=== PATIENT | male | born 1960 | race Caucasian/White ===

== ENCOUNTER 2017-03-04 05:19 | Inpatient (IN) | payer OTHER ==
[2017-02-19 15:01] VITALS: BMI 34.0
--- NOTE | 2017-02-19 15:25 | PAT Medication Instructions ---
Service Date Feb 19, 2017. Current Home Medication List Acetaminophen (Tylenol), 1,000 MG PO Q8H PRN for RN Diclofenac (Voltaren), 75 MG PO BID Gabapentin (Neurontin), 300 MG PO HS Loratadine (Claritin), 10 MG PO QAM Sertraline (Zoloft), 100 MG PO QAM Medication Instructions For Your Scheduled Surgery - Hold the following medications 7 days prior to surgery PER SURGEON'S INSTRUCTIONS: Diclofenac (Voltaren), 75 MG PO BID - Hold the following medications the morning of surgery: Loratadine (Claritin), 10 MG PO QAM - Take the following medications the morning of surgery with a sip of water OTHERWISE NOTHING TO EAT OR DRINK AFTER MIDNIGHT: Acetaminophen (Tylenol), 1,000 MG PO Q8H PRN (may take if needed up to 4 hours prior to surgery) Sertraline (Zoloft), 100 MG PO QAM - Take the following medications as scheduled the night before surgery: Acetaminophen (Tylenol), 1,000 MG PO Q8H PRN Gabapentin (Neurontin), 300 MG PO HS If you have any questions please call us at [phone] or [phone] or [phone]
--- NOTE | 2017-02-19 16:04 | DIAGNOSTIC IMAGING REPORT ---
CHEST 2 VIEWS ROUTINE CLINICAL HISTORY: Preoperative evaluation. COMPARISON STUDY: No previous studies for comparison. FINDINGS: There is suspected mild lung hyperexpansion. There may be a trace right pleural effusion. There is no evidence of pulmonary edema. No consolidation is identified to suggest pneumonia. Cardiomediastinal silhouette is normal. IMPRESSION: 1. Possible trace right pleural effusion. 2. No evidence of pulmonary edema. 3. No consolidation to suggest pneumonia. Electronically signed by: Tee Varner M.D. 02/19/2017 4:02 PM Dictated Date/Time: 02/19/2017 4:01 PM
[2017-02-19 17:53] LABS: HEMOGLOBIN A1C 5.3 % (4.5-5.6)
--- NOTE | 2017-02-25 09:49 | HISTORY & PHYSICAL EXAMINATION ---
DATE OF ADMISSION: 03/04/2017 CHIEF COMPLAINT: Left knee pain. HISTORY OF PRESENT ILLNESS: Jose is a 56-year-old male with a multiple year history of left knee pain. The patient rates his pain at 10/10. He has pain with his daily activities. He has limited standing and walking tolerance. Pain is worse with weightbearing. The patient has had NSAIDs, Tylenol, injections and bracing over the years without relief. He has failed conservative treatment and is scheduled for left knee replacement. PAST SURGICAL HISTORY: Left knee arthroscopy, hernia repair and fistula repair. SOCIAL HISTORY: The patient drinks 12 drinks per week. He smokes 1 pack per day. He lives in a 2-story home. 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 FAMILY HISTORY: Negative for DVT. MEDICATIONS: Gabapentin 300 mg 3 times daily, sertraline 100 mg daily, loratadine 10 mg daily, and diclofenac 75 mg b.i.d. ALLERGIES: None. REVIEW OF SYSTEMS: See HPI. Ten other systems reviewed, all negative. PHYSICAL EXAMINATION: VITAL SIGNS: Height 6 feet 1 inch, weight 262 pounds, and BMI is 35. GENERAL: This is a well-developed and well-nourished male, who is alert and oriented x3. Mood and affect are appropriate. HEENT: Normocephalic and atraumatic. Mucous membranes are moist and intact. NECK: Supple without lymphadenopathy. HEART: Regular rate and rhythm without murmurs, rubs or gallops. LUNGS: Clear to auscultation without wheezes or rhonchi. ABDOMEN: Soft and nontender. Bowel sounds are equal and active. EXTREMITIES: No ecchymosis, redness or warmth. Thigh and calf are soft and nontender. He has moderate effusion. He has a varus deformity. Range of motion is from 3-115 degrees with +1 laxity. He is neurovascularly intact with +5/5 strength. X-RAY EXAMINATION: AP and lateral views show joint space narrowing and osteophyte formation. IMPRESSION: 1. Degenerative joint disease, left knee. 2. History of deep venous thrombosis and pulmonary embolism. 3. Chronic narcotic use. PLAN: The patient will be admitted for a left total knee arthroplasty. We will plan on using Lovenox 40 mg daily for DVT prophylaxis for 2 weeks followed by aspirin 325 mg for 4 more weeks, for 6 weeks total of anticoagulation. The patient also is a current smoker. He is aware that this increases his risk of postop complication. Smoking cessation was recommended at this time.
[~2017-03-04] VITALS: Ht 185.4 cm; Wt 118.6 kg
[2017-03-04] VITALS (9 sets, daily range): BP systolic 117–152; BP diastolic 66–92; PULSE 67–83; TEMP 36.5–36.8; O2SAT 92–96; Ht 185.4 cm; Wt 118.6 kg
[~2017-03-04 05:19] MED LIST: ACET-1256 PO; CLR10 PO; DICL-201 PO; GABA-113 PO; SERT-234 PO
[2017-03-04] MEDS ORDERED: METOCLOPRAMIDE HCL 10 MG TAB PO SCH (06:00)
[2017-03-04] MEDS ORDERED: CEFAZOLIN 2000MG IV PUSH 10 ML IV SCH (06:00)
[2017-03-04] MEDS ORDERED: FAMOTIDINE 20 MG TAB PO SCH (06:00)
[2017-03-04] MEDS ORDERED: ROPIVACAINE 5MG/ML 30 ML 150 MG, BUPIVACAINE 0.5% MPF INJ 30 ML, EpINEphrine HCL INJ 0.... INFIL SCH ×8 (06:00)
[2017-03-04] MEDS ORDERED: LACTATED RINGER'S 1000ML 500 ML IV SCH (06:00)
[2017-03-04] MEDS ORDERED: CeleBREX 200 MG CAP PO SCH (06:00)
[2017-03-04] MEDS ORDERED: ACETAMINOPHEN 500 MG TAB PO SCH (06:00)
[2017-03-04] MEDS ORDERED: LACTATED RINGER'S 1000ML IV SCH (06:00)
[2017-03-04] MEDS ORDERED: GABAPENTIN 300 MG CAP PO SCH ×2 (06:00→21:00)
[2017-03-04] MEDS ORDERED: LACTATED RINGER'S 1000ML 1,000 ML IV SCH (06:00)
[2017-03-04] MEDS ORDERED: DEXAMETHASONE 4 MG TAB PO SCH (06:00)
[2017-03-04] MEDS ORDERED: BUPIVACAINE 0.5 % 5 MG/1 ML PF 10ML VIAL ONE (06:24)
[2017-03-04] MEDS ORDERED: FENTANYL CITRATE INJ 50 MCG/1 ML 2 ML VIAL ONE (06:46)
[2017-03-04] MEDS ORDERED: PROPOFOL IV EMULSION 10 MG/ML 20 ML VIAL IV ONE ×2 (06:46→08:54)
[2017-03-04] MEDS ORDERED: MIDAZOLAM HCL 1 MG/ML 2ML VIAL ONE ×2 (06:46→07:26)
[2017-03-04] MEDS ORDERED: ORTHO JOINT ANESTHETIC ONE (06:49)
[2017-03-04] MEDS ORDERED: POVIDONE-IODINE OP SOLN 30 ML BTL ONE (06:50)
[2017-03-04] MEDS ORDERED: BACITRACIN 50000 UNIT VIAL ONE (06:50)
[2017-03-04] MEDS ORDERED: ONDANSETRON INJ 2 MG/ML 2 ML VIAL IV PRN ×2 (07:00→09:30)
[2017-03-04] MEDS ORDERED: ATROPINE SULFATE 0.1 MG/ML 5ML SYR IV PRN (07:00)
[2017-03-04] MEDS ORDERED: FENTANYL CITRATE INJ 50 MCG/1 ML 2 ML VIAL IV PRN (07:00)
[2017-03-04] MEDS ORDERED: EpHEDrine SULFATE INJ 50 MG/ML AMP IV PRN (07:00)
--- NOTE | 2017-03-04 07:08 | History & Physical Bridge Note ---
H&P Re-Evaluation Bridge Note: I have examined the patient, reviewed the History & Physical and in the interval since the performance of the History & Physical I have noted the following changes of clinical significance: No changes noted
--- NOTE | 2017-03-04 09:07 | [facility] Post Operative Brief Note ---
Immediate Operative Summary Operative Date Mar 04, 2017. Pre-Operative Diagnosis Left knee degenerative joint disease Post-Operative Diagnosis Left knee degenerative joint disease Procedure(s) Performed Left total knee arthroplasty Surgeon Dr. Zuniga High Lighter Surgeon(s) Yelitza Venegas PA-C Estimated Blood Loss 25 mL Findings Consistent with Post-Op Diagnosis Fluids (cc crystalloids) 1600 Specimens A: Left knee bone and tissue Drains None Anesthesia Type MAC Spinal Regional Complication(s) none Disposition Disposition: Recovery Room / PACU
[2017-03-04] MEDS ORDERED: PHENYLEPHRINE 100MCG/ML 5ML SYR ONE (09:12)
[2017-03-04] MEDS ORDERED: MAGNESIUM HYDROXIDE SUSP 30 ML UDC PO PRN (09:30)
--- NOTE | 2017-03-04 10:03 | DIAGNOSTIC IMAGING REPORT ---
LEFT KNEE 2 VIEWS History: Left total knee arthroplasty. Degenerative arthritis. Postop. FINDINGS: The patient is status post a left total knee arthroplasty. The hardware is intact. No fracture or dislocation. IMPRESSION: Left total knee arthroplasty. No evidence for hardware complication. Electronically signed by: Randy Griffith M.D. 03/04/2017 10:01 AM Dictated Date/Time: 03/04/2017 10:01 AM
[2017-03-04] MEDS: SODIUM CHLORIDE 0.9% 1000ML 1,000 ML IV SCH ×2 (12:10→20:48)
[2017-03-04] MEDS: KETOROLAC TROMETHAMINE 30 MG/ML VIAL IV. SCH ×2 (14:10→19:31)
[2017-03-04] MEDS: ACETAMINOPHEN 500 MG TAB PO SCH ×2 (14:10→20:47)
[2017-03-04] MEDS: OXYCODONE HCL IR 5 MG TAB (IMMEDIATE RELEASE) PO PRN ×2 (14:40→18:43)
[2017-03-04] MEDS: MoRPHine SULFATE 4 MG/ML 1 ML CARP\\VIAL IV PRN ×2 (15:10→23:12)
--- NOTE | 2017-03-04 15:27 | Discharge Instructions ---
Discharge Instructions Date of Service Mar 04, 2017. Admission Reason for Admission: Left Knee Osteoarthritis Discharge Discharge Diagnosis / Problem: sp left TKA Discharge Goals Goal(s): Decrease discomfort, Improve function, Increase independence Activity Recommendations Activity Limitations: per Instructions/Follow-up section . Instructions / Follow-Up Instructions / Follow-Up ACTIVITY RECOMMENDATIONS: SELF CARE INSTRUCTIONS AFTER TOTAL KNEE REPLACEMENT A. You may need to continue a physical therapy program after discharge from the hospital. There are several options available to you. Your doctor will assist you in selecting the best one for you. 1. An out-patient facility 2 to 3 times a week for therapy or home therapy. 2. Continue working on all exercises taught to you in the hospital. Your goals should be to increase bending of your knee to 90 degrees and beyond and to fully straighten your knee. B. You may progress at your own pace from walking with a walker or crutches to a cane; then to no assistive devices. C. Make walking a part of your daily routine. Be up as much as comfortable with rest periods throughout the day. Rest with leg elevation is very important. Use the ice wrap frequently for the first 3-4 weeks. D. There are no restrictions on activities. You may ride in a car, shop, participate in compounding assistant and all social activities. E. Wear the long elastic stockings (IBIS hose) 20 hours a day for 2 weeks after surgery. They can be removed several times a day for laundering and for a bath. F. You may shower, no tub baths until cleared by your doctor. SPECIAL CARE INSTRUCTIONS: VERY IMPORTANT TO READ AND REVIEW A. There are a few signs you need to watch for after you are home. Call [facility] if you notice any of the followin. Increased severe knee pain. Some pain is expected especially when you exercise. 2. Increased swelling in your leg or knee; pain or swelling of the calf muscle in either lower leg. 3. Any fluid drainage from the incision. 4. Shortness of breath or chest pain. B. Please call [facility] at if you have any concerns or questions about your operation or recovery. The doctor or his nurse will return your call promptly. C. You must take antibiotics before dental work, bladder, bowel or other surgery. Your doctor will provide you with a permanent care to carry describing this precaution. IMPORTANT: * REMEMBER TO TAKE LOVENOX 40 MG ONCE DAILY X 2 WEEKS THEN ASPIRIN 325MG TWICE DAILY FOR 4 WEEKS UNLESS OTHERWISE DIRECTED. THIS IS YOUR BLOOD THINNER. * HIGH RISK PATIENTS MAY BE PRESCRIBED A STRONGER BLOOD THINNER. THIS WILL BE PROVIDED AT DISCHARGE. * CALL IF INCREASED PAIN, REDNESS, DRAINAGE OR FEVER GREATER THAT 101. * WEAR IBIS HOSE 20 HOURS PER DAY FOR 2 WEEKS. DERMABOND Prineo- This is a mesh tape dressing that is covered with glue. It should remain in place until the incision is properly healed, usually 10-14 days. This dressing is designed to naturally slough off. You may trim the excess mesh tape as it peels off. Incision may be briefly wet in a shower. Dry immediately by blotting with a clean, dry towel. Do not bath or swim until instructed by your doctor. Do not scratch, rub, or pick at the dressing. Do not apply any topical ointments or lotions until dressing is completely removed and/or instructed by your doctor. There may be a small piece of suture material at one end of your incision. Do not pull or trim this. If it is bothersome or catching on clothing, you may cover it with a band-aid. FOLLOW UP VISIT: If appointment is not already scheduled: Please call [facility] to make a follow-up appointment for 2 weeks after your surgery at . Current Hospital Diet Patient's current hospital diet: Regular Diet Discharge Diet Recommended Diet: Regular Diet Procedures Procedures Performed: Left total knee arthroplasty Pending Studies Studies pending at discharge: no Laboratory Results Hemoglobin A1c Test 02/19/17 15:35 Range/Units Estimated Average Glucose 105 mg/dl Hemoglobin A1c 5.3 4.5-5.6 % Medical Emergencies . Who to Call and When: Medical Emergencies: If at any time you feel your situation is an emergency, please call 911 immediately. . Non-Emergent Contact Non-Emergency issues call your: Surgeon . "Provider Documentation" section prepared by Yelitza Venegas. . VTE Core Measure Inpt VTE Proph given/why not?: Other Anticoagulation, T.E.D. Stockings, SCD's [place] Drug Monitoring Program Search Results: patient reviewed within database, no issues identified
[2017-03-04] MEDS ORDERED: CEFAZOLIN IV 2,000 MG in DEXTROSE 5% 50ML 50 ML IV SCH (16:00)
[2017-03-04] MEDS ORDERED: NURSING VERBAL MED ORDER ONE (19:45)
--- NOTE | 2017-03-04 20:43 | Orthopedic Progress Note ---
Orthopedic Progress Note Date of Service Mar 04, 2017. Subjective Additional Notes: Postoperative progress note Patient seen at bedside, comfortable, no acute issues, pain well controlled. Objective LLE NVSI +EHL/FHL/TA/GS SILT grossly, CR< 2 seconds, +2 DP pulse, compartments soft NT, dressing cdi Date Time Temp Pulse Resp B/P (MAP) Pulse Ox O2 Delivery O2 Flow Rate FiO2 03/04/17 19:54 36.6 78 16 143/77 (99) 93 Room Air 03/04/17 15:21 36.8 70 16 131/66 (87) 92 Room Air 03/04/17 13:05 74 16 117/70 (86) 96 03/04/17 12:10 36.7 67 16 124/73 (90) 94 Room Air 03/04/17 11:18 36.6 71 16 145/81 (102) 93 Nasal Cannula 2.0 03/04/17 10:45 76 18 152/86 (108) 95 03/04/17 10:15 93 Nasal Cannula 2.0 03/04/17 10:15 93 Nasal Cannula 2.0 03/04/17 10:15 36.5 73 18 123/71 (88) 93 Nasal Cannula 2.0 03/04/17 10:00 36.2 73 17 121/71 93 Nasal Cannula 2 03/04/17 09:50 79 22 107/76 94 Nasal Cannula 2 03/04/17 09:40 36.1 89 18 141/87 96 Nasal Cannula 2 03/04/17 05:45 36.6 83 18 147/92 95 Room Air Assessment & Plan Assessment: s/p L TKA Plan: -Ancef x 24 -DVT ppx - Lovenox x 2 weeks, then ASA BID x 4 weeks -WBAT -PT/OT -Pain controlled -Am labs -Post operative XR demonstrates well aligned well fixed prosthesis, no fracture/ dislocation
[2017-03-04] MEDS: OXYCODONE HCL 10 MG TABCR (OXYCONTIN) PO SCH (20:45)
[2017-03-04] MEDS: DOCUSATE SODIUM 100 MG CAP PO SCH (20:46)
[2017-03-04] MEDS ORDERED: SENNA 8.6 MG TAB PO SCH (21:00)
[2017-03-05] MEDS ORDERED: CEFAZOLIN IV 2,000 MG in SYRINGE 0 ML IV SCH
[2017-03-05] MEDS: KETOROLAC TROMETHAMINE 30 MG/ML VIAL IV. SCH ×2 (01:32→09:01)
[2017-03-05 03:09] VITALS: BP 121/66; PULSE 69; TEMP 36.8; O2SAT 94
[2017-03-05] MEDS: ACETAMINOPHEN 500 MG TAB PO SCH ×2 (05:27→13:53)
[2017-03-05] MEDS: OXYCODONE HCL IR 5 MG TAB (IMMEDIATE RELEASE) PO PRN ×3 (05:27→13:32)
[2017-03-05] MEDS: SODIUM CHLORIDE 0.9% 1000ML 1,000 ML IV SCH (06:30)
[2017-03-05 07:00] LABS: HEMOGLOBIN 11.5 g/dL (14.0-18.0); MEAN CELL VOLUME 95.5 fL (80-100); MEAN CORPUSCULAR HEMOGLOBIN 32.3 pg (25-34); MEAN CORPUSCULAR HGB CONC 33.8 g/dl (32-36); MEAN PLATELET VOLUME 9.3 fL (7.4-10.4); PLATELET COUNT 186 K/uL (130-400); RED CELL DISTRIBUTION WIDTH CV 13.2 % (11.5-14.5); RED CELL DISTRIBUTION WIDTH SD 46.2 fL (36.4-46.3); WHITE BLOOD COUNT 9.51 K/uL (4.8-10.8)
[2017-03-05 07:08] LABS: PTT PATIENT 25.8 SECONDS (21.0-31.0)
[2017-03-05 07:27] LABS: CALCIUM 8.7 mg/dl (8.5-10.1); CREATININE 0.94 mg/dl (0.60-1.40)
[2017-03-05 07:50] VITALS: BP 126/71; PULSE 64; TEMP 36.7; O2SAT 94
[2017-03-05] MEDS ORDERED: ENOXAPARIN 40 MG/0.4 ML SYR SQ SCH (08:00)
[2017-03-05] MEDS ORDERED: OXYSR10 PO (08:23)
[2017-03-05] MEDS ORDERED: CLB200 PO (08:23)
[2017-03-05] MEDS ORDERED: ACET-1256 PO (08:23)
[2017-03-05] MEDS ORDERED: SENN-61 PO (08:23)
[2017-03-05] MEDS ORDERED: ONDA8TAB6 PO (08:23)
[2017-03-05] MEDS ORDERED: RXC5 PO (08:23)
[2017-03-05] MEDS: OXYCODONE HCL 10 MG TABCR (OXYCONTIN) PO SCH (08:58)
[2017-03-05] MEDS: DOCUSATE SODIUM 100 MG CAP PO SCH (08:59)
[2017-03-05] MEDS ORDERED: SERTRALINE HCL 100 MG TAB PO SCH (09:00)
[2017-03-05] MEDS ORDERED: PANTOprazole SOD 40 MG TAB PO SCH (09:00)
[2017-03-05] MEDS ORDERED: MULTIVITAMIN TAB PO SCH (09:00)
--- NOTE | 2017-03-05 09:30 | Orthopedic Progress Note ---
Orthopedic Progress Note Date of Service Mar 05, 2017. Subjective Additional Notes: Patient doing well this morning, pain controlled, no acute issues overnight. Objective LLE NVSI +EHL/FHL/TA/GS SILT grossly, CR< 2 seconds, +2 DP pulse, compartments soft NT, dressing cdi Date Time Temp Pulse Resp B/P (MAP) Pulse Ox O2 Delivery O2 Flow Rate FiO2 03/05/17 07:50 36.7 64 16 126/71 (89) 94 Room Air 03/05/17 03:09 36.8 69 17 121/66 (84) 94 Room Air 03/04/17 23:50 36.8 72 18 128/70 (89) 92 Room Air 03/04/17 19:54 36.6 78 16 143/77 (99) 93 Room Air 03/04/17 19:20 Room Air 03/04/17 15:21 36.8 70 16 131/66 (87) 92 Room Air 03/04/17 13:05 74 16 117/70 (86) 96 03/04/17 12:10 36.7 67 16 124/73 (90) 94 Room Air 03/04/17 11:18 36.6 71 16 145/81 (102) 93 Nasal Cannula 2.0 03/04/17 10:45 76 18 152/86 (108) 95 03/04/17 10:15 93 Nasal Cannula 2.0 03/04/17 10:15 93 Nasal Cannula 2.0 03/04/17 10:15 36.5 73 18 123/71 (88) 93 Nasal Cannula 2.0 03/04/17 10:00 36.2 73 17 121/71 93 Nasal Cannula 2 03/04/17 09:50 79 22 107/76 94 Nasal Cannula 2 03/04/17 09:40 36.1 89 18 141/87 96 Nasal Cannula 2 Laboratory Results 24 Hours: Test 03/05/17 06:44 Hematocrit 34.0 % Hemoglobin 11.5 g/dL Prothromb Time International Ratio 1.0 Prothrombin Time 10.0 SECONDS Assessment & Plan Assessment: s/p L TKA POD#1 Plan: -Ancef x 24 -DVT ppx - Lovenox x 2 weeks, then ASA BID x 4 weeks -WBAT -PT/OT -Pain controlled -Am labs - hgb 11.5 -Post operative XR demonstrates well aligned well fixed prosthesis, no fracture/ dislocation -Plan for DC home with homecare today.
--- NOTE | 2017-03-05 09:54 | Orthopedic Progress Note ---
Orthopedic Progress Note Date of Service Mar 05, 2017. Subjective Post OP Day: 1 Reports: feeling well, Denies: chest pain, SOB, nausea / vomiting, light headedness, calf pain Objective calves soft nontender, N/V intact, dressing C/D/I, A&O x3, toes mobile Date Time Temp Pulse Resp B/P (MAP) Pulse Ox O2 Delivery O2 Flow Rate FiO2 03/05/17 07:50 36.7 64 16 126/71 (89) 94 Room Air 03/05/17 03:09 36.8 69 17 121/66 (84) 94 Room Air 03/04/17 23:50 36.8 72 18 128/70 (89) 92 Room Air 03/04/17 19:54 36.6 78 16 143/77 (99) 93 Room Air 03/04/17 19:20 Room Air 03/04/17 15:21 36.8 70 16 131/66 (87) 92 Room Air 03/04/17 13:05 74 16 117/70 (86) 96 03/04/17 12:10 36.7 67 16 124/73 (90) 94 Room Air 03/04/17 11:18 36.6 71 16 145/81 (102) 93 Nasal Cannula 2.0 03/04/17 10:45 76 18 152/86 (108) 95 03/04/17 10:15 93 Nasal Cannula 2.0 03/04/17 10:15 93 Nasal Cannula 2.0 03/04/17 10:15 36.5 73 18 123/71 (88) 93 Nasal Cannula 2.0 03/04/17 10:00 36.2 73 17 121/71 93 Nasal Cannula 2 Laboratory Results 24 Hours: Test 03/05/17 06:44 Hematocrit 34.0 % Hemoglobin 11.5 g/dL Prothromb Time International Ratio 1.0 Prothrombin Time 10.0 SECONDS Assessment & Plan Assessment: s/p L TKA POD#1 Plan: -Ancef x 24 -DVT ppx - Lovenox x 2 weeks, then ASA BID x 4 weeks -WBAT -PT/OT -Pain controlled -Am labs - hgb 11.5 -Post operative XR demonstrates well aligned well fixed prosthesis, no fracture/ dislocation -Plan for DC home with homecare today.
[2017-03-05] MEDS ORDERED: LVNIS40 SQ (09:56)
[2017-03-05 10:10] VITALS: BP 126/71; PULSE 64; TEMP 36.7; O2SAT 94
--- NOTE | 2017-03-05 13:16 | Anesthesiology Progress Note ---
Anesthesia Post Op Note Date & Time Mar 05, 2017 at 13:15 Vital Signs Pain Intensity: 6.0 Vital Signs Past 12 Hours Date Time Temp Pulse Resp B/P (MAP) Pulse Ox O2 Delivery O2 Flow Rate FiO2 03/05/17 10:10 36.7 64 16 94 Room Air 03/05/17 08:45 Room Air 03/05/17 07:50 36.7 64 16 126/71 (89) 94 Room Air 03/05/17 03:09 36.8 69 17 121/66 (84) 94 Room Air Notes Mental Status: alert / awake / arousable, participated in evaluation Pt Amnestic to Procedure: Yes Nausea / Vomiting: adequately controlled Pain: adequately controlled Airway Patency, RR, SpO2: stable & adequate BP & HR: stable & adequate Hydration State: stable & adequate Awake, alert, VSS, anticipating discharge. Pain controlled with medication Pain scale 6. No complaints with anesthesia.
[2017-03-05] MEDS: MoRPHine SULFATE 4 MG/ML 1 ML CARP\\VIAL IV PRN (13:35)
--- NOTE | 2017-03-05 14:56 | [facility] Operative Report ---
Operative Report Operative Date Mar 05, 2017. Pre-Operative Diagnosis Left knee degenerative joint disease Post-Operative Diagnosis Left knee degenerative joint disease Procedure(s) Performed Left total knee arthroplasty Surgeon Dr. Zuniga Vallez Filter Operator Surgeon(s) Yelitza Venegas PA-C Estimated Blood Loss 25 mL Findings see dictated op note Fluids 1600 Specimens A: Left knee bone and tissue Drains none Anesthesia spinal Complication(s) None Disposition Recovery Room / PACU Indications A 56-year-old male presents with long history of left knee severe tricompartmental DJD which is failed outpatient conservative treatments including NSAIDs, bracing, cortisone injections home walking/exercise program. His symptoms have progressed to the point where it has been difficult for him to perform normal activities of daily living. I have indicated the patient for a left total knee arthroplasty, the risks and benefits and complications of the procedure include but are not limited to infection bleeding damage to bone nerves vessels surrounding soft tissue, blood clots loss of function leg length discrepancy dislocation failure of the components need for additional surgery and . The patient wished to proceed with surgery at this time and informed consent was obtained. Appropriate clearances were obtained. Description of Procedure Following induction of spinal anesthesia, a tourniquet was applied to the proximal aspect of the thigh and the patient's left leg was prepped and draped in the usual sterile manner. A timeout was performed and site julito verified. Limb was exsanguinated with an esmarch bandage and tourniquet was inflated to 300 mmHg. A longitudinal midline incision was made over the anterior knee. Subcutaneous tissue was sharply dissected down to fascia. Electrocautery was used for hemostasis. Next a parapatellar arthrotomy was performed. Patella was everted and the knee was flexed. A aj retractor was used to expose the synovium above on the anterior aspect of the femur and removed down to bone. Next, the anterior fat pad was removed to aid in visualization. The medial face of the tibia was cleared of soft tissue first with a bovie and a johnson elevator. This tissue was retracted posteriorly using a blunt enrico. Next the extramedullary tibial cutting guide was placed to the anterior aspect of the tibia. The tibial resection level was set taking 2mm from the defective tibial condyle. The medial and lateral collateral ligaments were protected with two enrico retractors. The tibia guide was removed and proximal tibial bone fragment excised utilizing straight osteotome, electrocautery and brayden. Next, the distal femur intramedullary canal was accessed utilizing the step drill. The intramedullary distal femur cutting guide was placed into the canal and pinned into place. The distal femur was cut on the +0 setting. Next the cutting guide was removed and the femur was sized. Care was taken to ensure appropriate facing slitter all rotation and 3 degree holes were drilled. A size 9 4-in-1 cutting block was placed on the distal end of the femur and secured into place with two short headed screws. To bent homans were placed to protect the medial and lateral collateral ligaments. The oscillating saw was used to cut anterior, posterior, anterior chamfer and posterior chamfer. The four and one cutting block was removed and bone fragments excised. Laminar assistant attorney general was placed laterally and the ACL and PCL were removed followed by the medial meniscus and posterior medial osteophytes. Aquamantys was utilized for any posterior medial bleeders and Orthomix injected into the posterior medial capsule. A laminar assistant attorney general was then placed in the medial compartment and the lateral meniscus and posterior osteophytes were removed. Aquamantys was utilized for any posterior lateral bleeders and Orthomix injected into the posterior lateral capsule. Next, drop timbo and spacer block were placed with the leg in flexion and extension to assess alignment and flexion/extension gaps. Next the proximal tibia was assessed and two bent homans were placed medial and lateral to aid in visualization. The appropriate tibia size and rotation was selected and a size G tibia guide was pinned into place with appropriate rotation. Preparation of the tibia was completed utilizing the matching tibial drill and broach. I then turned my attention back to the distal femur in a trial femoral component was impacted into place. Appropriate femoral width was assessed and selected. Next the femur PS box cut guide was placed and cut made with the reciprocal saw and the PS box provisional placed. A trial size 12 mm tibia articular tray was placed and varus-valgus balance assessed in 0 degrees of extension and 30, 60 and 90 degrees of flexion. Sequenti tibial inserts were trailed to find the best fit. A final tibial articular surface size 16 mm was chosen. Assess was gained to the patella and caliper utilized to measure width. The patella reamer was utilized and remaining bone removed with oscillating saw. A size 35 mm patella button was selected and the patella pegs drilled. Trial patella button was placed and tracking was assessed. The knee was found to be well balanced, well aligned with excellent patella tracking. The trials were removed and final components were obtained and assembled. The knee was irrigated copiously with sterile saline solution mixed with bacitracin. Access to the proximal tibia was once again obtained utilizing to the homans and the proximal tibia and distal femur were dried with lap sponges. The final components were cemented into place and all excess cement was removed. A trial tibial articular surface was placed while cemented hardened. Knee stability was once again assessed and the final component inserted. The knee was injected with the remaining Orthomix solution and irrigated once more with sterile saline solution mixed with bacitracin. The capsulotomy was closed with #1 Vicryl followed by subcutaneous closure with 2-0 Vicryl suture and a 3- 0 V-lock suture. Skin closure was performed using Prineo dressing followed by Tanner, 4 x 4s and angela wrap. The patient tolerated the procedure well and was taken to the PACU in stable condition. Due to the complex nature of the procedure, the entire surgery was performed with the operational assistance of Flower Venegas PA-C. The orthodontist assistant, under direct supervision, was involved in the actual performance of all aspects of the surgical procedure including hemostasis, tissue retraction and incision, Instrument management, patient positioning, and wound closure. I attest to the content of the Intraoperative Record and any orders documented therein. Any exceptions are noted below. I attest to the content of the Intraoperative Record and any orders documented therein. Any exceptions are noted below.
[2017-03-06] MEDS ORDERED: CeleBREX 200 MG CAP PO SCH (21:00)
== END 2017-03-05 14:49 | disposition home or self-care (01) | DRG 470 ==
LOC: C.ACU 05:19 → C.3E 06:05 → ENRESERV 09:48
PROVIDERS: ADMIT Orthopaedic Surgery; ATTEND Orthopaedic Surgery
PROC: 0SRD0J9 Replacement of Left Knee Joint with Synthetic Substitute, Cemented, Open Approach (ICD-10-PCS; principal; 2017-03-04 07:15)
DX: M17.12 Unilateral primary osteoarthritis, left knee (principal); G62.9 Polyneuropathy, unspecified; F32.9 Major depressive disorder, single episode, unspecified; E66.9 Obesity, unspecified; Z68.34 Body mass index [BMI] 34.0-34.9, adult; F17.200 Nicotine dependence, unspecified, uncomplicated; Z72.89 Other problems related to lifestyle; Z86.711 Personal history of pulmonary embolism; Z86.718 Personal history of other venous thrombosis and embolism; Z79.1 Long term (current) use of non-steroidal anti-inflammatories (NSAID); Z79.899 Other long term (current) drug therapy; Z98.890 Other specified postprocedural states

== ENCOUNTER 2019-04-12 04:55 | Inpatient (IN) ==
--- NOTE | 2019-03-31 16:09 | PAT Medication Instructions ---
Medication Instructions Date of Service March 31, 2019 Home Medications Chantix Patch-Starter Pack 1 patch TOPICAL Q2D gabapentin 300 mg PO BID hydrocodone-acetaminophen 1 tab PO Q6H PRN sertraline 100 mg PO QAM DO NOT take the morning of surgery Chantix Patch-Starter Pack 1 patch TOPICAL Q2D Take morning of surgery With a small sip of water, OTHERWISE NOTHING TO EAT OR DRINK AFTER MIDNIGHT: gabapentin 300 mg PO BID hydrocodone-acetaminophen 1 tab PO Q6H PRN (okay to take up to 4 hours prior to surgery if needed) sertraline 100 mg PO QAM Take evening before surgery gabapentin 300 mg PO BID hydrocodone-acetaminophen 1 tab PO Q6H PRN (if needed) Other Notes If you have any questions please call us at [phone] or [phone] or [phone] or [phone]
--- NOTE | 2019-04-05 11:50 | Anesthesiology Consultation ---
Date of Service April 05, 2019 Assessment & Plan (1) Encounter for pre-operative examination: Chart Review Chart Review: Acceptable Risk for Surgery (pending surgeon-ordered PCP clearance scheduled 04/07 (Dr. Taylor)) and Patient seen in Pre Admission Testing Teaching & Discussion Pre-Anesthesia Teaching/Discussion Notes: Instructed NPO after midnight before surgery,except medications with 15 cc of water. Medication instructions prov ided according to the PAT guidelines. History Surgery Operation Date: 04/12/19 09:00 Proposed Procedures p Right Total Knee Arthroplasty - Landen Zuniga DO Height/Weight Height: 6 ft 1 in Weight: 112.8 kg Allergies Allergy/AdvReac Type Severity Reaction Status Date / Time No Known Allergies Allergy Verified 03/30/19 10:08 Medications Home Medications Medication Instructions Recorded Confirmed Last Taken Chantix Patch-Starter Pack 1 patch TOPICAL Q2D 03/30/19 03/30/19 Unknown gabapentin 300 mg PO BID 03/30/19 03/30/19 Unknown hydrocodone-acetaminophen 1 tab PO Q6H PRN 03/30/19 03/30/19 Unknown sertraline 100 mg PO QAM 03/30/19 03/30/19 Unknown Past Medical History Medical History Arthritis Chronic obstructive pulmonary disease Depression Obesity Pulmonary embolism 1986 (post-op left knee surgery)- was on AC x 6 months Exercise / Class Metabolic Activity III < 4 Walking/Shop/Light housework Past Family History Family History Mother Family hx of colon cancer Past Surgical History Surgical History H/O left knee surgery History of colonoscopy History of herniorrhaphy History of prostate biopsy ENLARGED-BENIGN Inguinal cyst REMOVAL Past Anesthesia History No Hx of Anesthesia Complications and No Family Hx of Anesthesia Complications History of PONV No Hx of PONV and No Hx of Motion Sickness Social History Smoking Status: Current every day smoker Smoking cigarettes per day: X 40 YRS-CUTTING DOWN-10 CIGS A DAY CUTTING DOWN-ON CHANTIX PATCH Do You Dip or Chew Tobacco: No Hx Alcohol Use: Yes Alcohol type: beer alcohol intake frequency: a few times a week Hx Substance Use: No Review of Systems Patient denies chest pain, shortness of breath, dyspnea on exertion, cough, wheezing, palpitations. Physical Exam Vital Signs VITALS BP 124/84 P 73 TEMP 97.9 SP02 96%RA RESP 18 PHYSICAL Full neck and c-spine range of motion. Full TMJ range of motion. TMD 3 finger breaths Mallampati Score 2 Dentition: missing side tooth, several chipped teeth per patient Lungs: clear throughout to auscultation Cardiac: regular rate and rhythm, no murmurs noted Spine: normal Carotid arteries: negative bruit Extremities: no edema Testing Laboratory Results 04/05/19 12:08 04/05/19 12:08 PT 10.3 Seconds (9.0-12.0) 04/05/19 12:08 INR 1.0 (0.9-1.1) 04/05/19 12:08 APTT 28.0 Seconds (21.0-31.0) 04/05/19 12:08 Hemoglobin A1c 5.2 % (4.5-5.6) 04/05/19 12:08 Urine Color Dark Yellow 04/05/19 12:08 Urine Appearance Cloudy (Clear) A 04/05/19 12:08 Urine pH 5.0 (4.5-7.5) 04/05/19 12:08 Ur Specific [place] 1.023 (1.000-1.030) 04/05/19 12:08 Urine Protein Negative (Negative) 04/05/19 12:08 Urine Glucose (UA) Negative (Negative) 04/05/19 12:08 Urine Ketones Negative (Negative) 04/05/19 12:08 Urine Nitrite Negative (Negative) 04/05/19 12:08 Ur Leukocyte Esterase Negative (Negative) 04/05/19 12:08 Urine WBC (Auto) 1-5 /hpf (0-5) 04/05/19 12:08 Urine RBC (Auto) 0-4 /hpf (0-4) 04/05/19 12:08 U Hyaline Cast (Auto) 5-10 /lpf (0-5) H 04/05/19 12:08 U Epithel Cells (Auto) >30 /lpf (0-5) H 04/05/19 12:08 Urine Bacteria (Auto) Negative (Negative) 04/05/19 12:08 Blood Type B Positive 04/05/19 12:08 Antibody Screen NEGATIVE 04/05/19 12:08 04/05/19 12:08 Urine Culture - Preliminary Urine,Clean Catch No growth - Less than 1,000 colonies/mL, Final report to follow. Electrocardiogram Date: 04/05/19 NSR at 69bpm. Possible inferior infarct, age undetermined. Chest X-Ray Date: 04/05/19 No acute findings. Stable lower lung zone areas of scarring/atelectasis. Stable blunting of the right lateral posterior costophrenic angles.
--- NOTE | 2019-04-05 12:26 | XRay Report ---
XR chest Pre-admission PA/Lat CLINICAL HISTORY: Preoperative chest COMPARISON STUDY: February 2017 FINDINGS: The cardiac and mediastinal contours are normal. There is no evidence of focal pulmonary co nsolidation. There is no evidence of failure. No pleural effusions are visualized.[There is stable bl unting of the right and posterior costophrenic angles. There is stable lower lung zone parenchymal sc arring. IMPRESSION: 1. No acute findings 2. Stable lower lung zone areas of scarring/atelectasis 3. Stable blunting of the right lateral posterior costophrenic angles ACT 112: Negative or not required by law. Electronically signed by: Dylan Fontana M.D. 04/05/2019 12:25 PM
[2019-04-05 13:36] LABS: Basophils # (auto) 0.03 K/uL (0-0.2); Basophils % (auto) 0.6 %; Eosinophils # (auto) 0.13 K/uL (0-0.5); Eosinophils % (auto) 2.6 %; Hematocrit (blood only) 48.9 % (42-52); Hemoglobin 16.5 g/dL (14.0-18.0); Immature Granulocytes # (auto) 0.01 K/uL (0.00-0.02); Immature Granulocytes % (auto) 0.2 %; Lymphocytes # (auto) 1.04 K/uL (1.2-3.4); Lymphocytes % (auto) 20.5 %; Mean Corpuscular Hemoglobin 34.2 pg (25-34); Mean Corpuscular Hgb Conc 33.7 g/dL (32-36); Mean Corpuscular Volume 101.2 fL (80-100); Mean Platelet Volume 10.3 fL (7.4-10.4); Monocytes # (auto) 0.54 K/uL (0.11-0.59); Monocytes % (auto) 10.6 %; Neutrophils # (auto) 3.33 K/uL (1.4-6.5); Neutrophils % (auto) 65.5 %; Platelet Count 200 K/uL (130-400); RDW Coefficient of Variation 14.1 % (11.5-14.5); RDW Standard Deviation 52.7 fL (36.4-46.3); Red Blood Count 4.83 M/uL (4.7-6.1); White Blood Count 5.08 K/uL (4.8-10.8)
[2019-04-05 13:45] LABS: Albumin Globulin Ratio 1.1 (0.9-2); Albumin Level 3.7 gm/dl (3.4-5.0); BUN Creatinine Ratio 11.7 (10-20); Bilirubin,Total 0.6 mg/dl (0.2-1); Calcium 8.9 mg/dl (8.5-10.1); Creatinine Clr Calc Pharmacy 93.7 ml/min; Est GFR (African American) 84.5; Est GFR (Non-African American) 72.9; Globulin 3.4 gm/dl (2.5-4.0); Potassium 4.2 mmol/L (3.5-5.1); Total Protein 7.1 gm/dl (6.4-8.2)
[2019-04-05 13:46] LABS: Estimated Average Glucose 103 mg/dl; Hemoglobin A1C 5.2 % (4.5-5.6)
[2019-04-05 13:49] LABS: Bilirubin Direct 0.1 mg/dl (0-0.2)
[2019-04-05 13:55] LABS: Prothrombin Time 10.3 Seconds (9.0-12.0)
[2019-04-05 13:59] LABS: Appearance Urine Cloudy (Clear); Bacteria Urine Automated Negative (Negative); Blood Urine Negative (Negative); Color Urine Dark Yellow; Epithelial Cell Urine Auto >30 /lpf (0-5); Glucose Urine UA Negative (Negative); Ketones Urine Negative (Negative); Leukocyte Esterase Urine Negative (Negative); Nitrite Urine Negative (Negative); Protein Urine Negative (Negative); RBC Urine Automated 0-4 /hpf (0-4); Specific Gravity Urine 1.023 (1.000-1.030); Urobilinogen Urine Negative (Negative)
[2019-04-05 14:08] LABS: Bilirubin Urine Negative (Negative); Ictotest Urine Negative (Negative)
--- NOTE | 2019-04-06 14:27 | Electrocardiogram Report ---
Test Reason : Blood Pressure : / mmHG Vent. Rate : 069 BPM Atrial Rate : 069 BPM P-R Int : 174 ms QRS Dur : 096 ms QT Int : 412 ms P-R-T Axes : 077 080 -19 degrees QTc Int : 441 ms Normal sinus rhythm Possible Inferior infarct , age undetermined Abnormal ECG No previous ECGs available Confirmed by Sav Collins ([id number]) on 04/06/2019 2:27:37 PM Referred By: Landen Zuniga Confirmed By:Nadir Collins
--- NOTE | 2019-04-10 12:15 | History & Physical Report ---
Date of Service April 10, 2019 Assessment & Plan (1) Degenerative joint disease of knee, right: I have indicated the patient for right total knee replacement. The risks, benefits and complications of surgery were explained to the patient which include but not limited to infection, acute blood loss, DVT/PE, injury to nerves, vessels, bone, soft tissue, arthrofibrosis, chronic pain, failure of the prosthesis, knee dislocation, leg length discrepancy, need for additional surgery, cardiac and pulmonary events and . The patient wished to proceed with surgery and informed consent was obtained at this time. We will plan for Lovenox post-operatively for DVT prophylaxis. Upon discharge the patient will be discharged home with home health services. Appropriate clearances by PCP were obtained. History of Present Illness Chief Complaint: Right knee pain/djd Primary Care Provider: Brenda Taylor The patient is a 59 year old male who presents with complaints of severe right knee pain and DJD. The patient has failed outpatient conservative treatments to this point which included NSAIDs, IA corticosteroid injection, PT and a home exercise walking program. The patient's pain and limited function have progressed to the point where they severely hinder their activities of daily living and they no longer tolerate exercise programs. They are requesting to proceed with total knee replacement surgery. Allergies Allergy/AdvReac Type Severity Reaction Status Date / Time No Known Allergies Allergy Verified 04/12/19 05:40 Home Medications Home Medications Medication Instructions Recorded Confirmed Type Chantix Patch-Starter Pack 1 patch TOPICAL Q2D 03/30/19 04/12/19 History gabapentin 300 mg PO BID 03/30/19 04/12/19 History hydrocodone-acetaminophen 1 tab PO Q6H PRN 03/30/19 04/12/19 History sertraline 100 mg PO QAM 03/30/19 04/12/19 History Past Med/Surg History Medical History Arthritis Chronic obstructive pulmonary disease Depression Obesity Pulmonary embolism 1986 (post-op left knee surgery)- was on AC x 6 months Surgical History H/O left knee surgery History of colonoscopy History of herniorrhaphy History of prostate biopsy ENLARGED-BENIGN Inguinal cyst REMOVAL Family History Mother Family hx of colon cancer Social History Preferred Language: Tunisian Communication Ability: Effective Ballpoint Pen Cartridge Tester Required: No Beliefs That Will Affect Care: None Current Living Situation: Significant Other Other Information That Helps Us Care for You: No Feels Safe at Home: Yes Safety Concerns: Feels Safe At This Time Smoking Status: Current every day smoker Cigarettes Per Day: X 40 YRS-CUTTING DOWN-10 CIGS A DAY CUTTING DOWN-ON CHANTIX PATCH ; Do You Dip or Chew Tobacco: No ; Second Hand Exposure: Yes (FAMILY SMOKED) ; Hx Alcohol Use: Yes Alcohol type: beer Hx Substance Use: No Review of Systems Review of Systems: All systems reviewed & are unremarkable except as noted in HPI & below Constitutional: as per Subjective / HPI Physical Exam Physical Exam: RLE NVSI +EHL/FHL/TA/GS SILT grossly, +2 DP pulse, compartments soft NT, limited painful ROM, 0-115 degrees of flexion, +crepitus. Constitutional: WD/WN, vitals as above Eyes: PERRL, conjunctivae normal, anicteric sclerae ENMT: external ear and nose normal, oropharynx normal Neck: trachea midline, no thyromegaly Respiratory: normal respiratory effort, lungs clear to auscultation Cardiovascular: RRR, no murmur, no edema Gastrointestinal (Abdomen): normal bowel sounds, soft, nontender, no hepatosplenomegaly Musculoskeletal: no cyanosis or clubbing, extremities motor strength 5/5 Skin: no rashes, warm and dry Neurologic: patellar DTR's 2+ bilat, sensation intact Psychiatric: A+Ox3, euthymic affect Lymphatic: no cervical or axillary lymphadenopathy Results & Data Diagnostic Findings Multiple views of the knee demonstrates severe tricompartmental DJD with complete loss of the medial joint space. +osteophytes, +sclerosis, +subchondral cysts.
[~2019-04-12 04:55] MED LIST changes: -ACET-1256 PO; -CLR10 PO; -DICL-201 PO; -GABA-113 PO; +MISSING PHYSICIAN SIGNATURE ON ORDER SCH; -SERT-234 PO
[2019-04-12] MEDS ORDERED: PREGABALIN 75 MG CAP PO SCH (06:00)
[2019-04-12] MEDS ORDERED: FAMOTIDINE 20 MG TAB PO SCH (06:00)
[2019-04-12] MEDS ORDERED: LR 500ML BOLUS, THEN 15ML/HR IV SCH (06:00)
[2019-04-12] MEDS ORDERED: GABAPENTIN 600 MG DOSE PO SCH (06:00)
[2019-04-12] MEDS ORDERED: CeleBREX 200 MG CAP PO SCH (06:00)
[2019-04-12] MEDS ORDERED: dexAMETHasone 4 MG TAB PO SCH (06:00)
[2019-04-12] MEDS ORDERED: ROPIVACAINE 0.5% HCL/PF 150 MG, BUPIVACAINE 0.5% MPF 30 ML, EPINEPHrine 30MG/30ML (OR U... INSTIL SCH (06:00)
[2019-04-12] MEDS ORDERED: TRANEXAMIC ACID 1,000 MG **IV Pre-op IV SCH (06:00)
[2019-04-12] MEDS ORDERED: ACETAMINOPHEN 500 MG TAB PO SCH (06:00)
[2019-04-12] MEDS ORDERED: CEFAZOLIN 2000MG 2,000 MG/15 ML SYR IV SCH (06:00)
[2019-04-12] MEDS ORDERED: METOCLOPRAMIDE HCL 10 MG TABLET PO SCH (06:00)
[2019-04-12] MEDS ORDERED: CEFAZOLIN 2,000 MG/15 ML IV PUSH IV ONE (06:01)
[2019-04-12] MEDS ORDERED: BUPIVACAINE 0.5 % 5 MG/1 ML PF 10ML VIAL ONE ×2 (06:18→06:44)
[2019-04-12] MEDS ORDERED: BUPIVACAINE 0.25% 30 ML VIAL ONE (06:19)
[2019-04-12] MEDS ORDERED: fentaNYL citrate 100 MCG/2 ML VIAL ONE (06:20)
[2019-04-12] MEDS ORDERED: MIDAZOLAM HCL 1 MG/ML 2ML VIAL ONE (06:20)
[2019-04-12] MEDS ORDERED: PROPOFOL IV EMULSION 10 MG/ML 20 ML VIAL IV ONE ×4 (06:21→07:46)
[2019-04-12] MEDS ORDERED: ORTHO JOINT ANESTHETIC ONE (06:35)
[2019-04-12] MEDS ORDERED: BACITRACIN INJ 50,000 UNIT VIAL ONE (06:35)
[2019-04-12] MEDS ORDERED: ATROPINE SULFATE 0.1 MG/ML 10ML SYR IV PRN (06:43)
[2019-04-12] MEDS ORDERED: ePHEDrine sulfate 50 MG/ML AMP IV PRN (06:43)
[2019-04-12] MEDS ORDERED: fentaNYL citrate 100 MCG/2 ML VIAL IV PRN (06:43)
[2019-04-12] MEDS ORDERED: ONDANSETRON INJ 2 MG/ML 2 ML VIAL IV PRN ×2 (06:43→10:05)
[2019-04-12] MEDS ORDERED: GABAPENTIN 300 MG CAP ONE (06:45)
--- NOTE | 2019-04-12 06:48 | History & Physical Bridge Note ---
Date of Service April 12, 2019 History & Physical Bridge Note I have examined the patient, reviewed the History & Physical and in the interval since the performance of the History & Physical I have noted the following changes of clinical significance: no changes noted
[2019-04-12] MEDS: TRANEXAMIC ACID 1,000 MG **IV Intra-op IV SCH ×2 (06:50→08:33)
[2019-04-12] MEDS ORDERED: PHENYLEPHRINE HCL 10 MG/ML VIAL ONE (07:13)
[2019-04-12] MEDS ORDERED: ePHEDrine sulfate 50 MG/ML SYR ONE (07:24)
--- NOTE | 2019-04-12 08:39 | Post Operative Brief Note ---
Immediate Post Op Note v1 Date of Surgery April 12, 2019 Pre & Post Diagnosis Operation Date: 04/12/19 07:00 Pre-Op Diagnosis: Unilateral Primary Osteoarthritis, Right Knee Post-Op Diagnosis: Unilateral Primary Osteoarthritis, Right Knee I identified the patient and participated in the time-out.: Yes Procedure Operation Date: 04/12/19 07:00 Actual Procedures p Right Total Knee Arthroplasty(Right) - Landen Zuniga DO Surgeon Landen Zuniga DO Stock Broker Clay Shepherd Estimated Blood Loss 50 Findings Consistent with Post-Op Diagnosis Fluids 1000 cc LR Specimens proximal tibia and distal femur bone fragments Anesthesia Type MAC Spinal Regional Complications none Disposition Disposition: Recovery Room Overlapping Procedure I was present for: the critical portions of procedure. I was immediately available: during the entire case. Back up surgeon: was not required during procedure.
--- NOTE | 2019-04-12 08:49 | Operative Report ---
Post Operative Report Pre & Post Diagnosis Operation Date: 04/12/19 07:00 Pre-Op Diagnosis: Unilateral Primary Osteoarthritis, Right Knee Post-Op Diagnosis: Unilateral Primary Osteoarthritis, Right Knee I identified the patient and participated in the time-out.: Yes Procedure Operation Date: 04/12/19 07:00 Actual Procedures p Right Total Knee Arthroplasty(Right) - aLnden Zuniga DO Surgeon Landen Zuniga DO Production Tech Clay Shepherd Estimated Blood Loss 50 Findings Consistent with Post-Op Diagnosis Fluids 1000 cc LR Specimens Proximal tibia distal femur bone fragments Drains None Anesthesia Type MAC Spinal Regional Complications none Disposition Disposition: Recovery Room Indications The patient is a 59-year-old male presents with long history of severe right knee tricompartmental DJD and failed outpatient conservative treatments including NSAIDs, bracing, injections and home walking/exercise program. The patient's symptoms have progressed to the point where it has been difficult to perform normal activities of daily living. I have indicated the patient for a right total knee arthroplasty, the risks and benefits and complications of the procedure include but are not limited to infection bleeding damage to bone, nerves, vessels, surrounding soft tissue, blood clots, loss of function, leg length discrepancy, dislocation, failure of the components, need for additional surgery and . The patient wished to proceed with surgery at this time and informed consent was obtained. Appropriate clearances were obtained. Description of Procedure COMPONENTS USED: Rudolph persona knee system: Femur size 9, Tibia size G tibial articulating surface 14 PS, Patella 35 mm Following induction of spinal anesthesia, a tourniquet was applied to the proximal aspect of the thigh and the patient's right leg was prepped and draped in the usual sterile manner. A timeout was performed, patient identified and site julito confirmed. Appropriate pre-operative IV antibiotics were given. The limb was exsanguinated with an Esmarch bandage and tourniquet was inflated to 300 mmHg. A longitudinal midline incision was made over the anterior knee. Subcutaneous tissue was sharply dissected down to fascia. Electrocautery was used for hemostasis. Next a parapatellar arthrotomy was performed. Patella was everted and the knee was flexed. A Pina retractor was used to expose the synovium above on the anterior aspect of the femur and removed down to bone. Next, the anterior fat pad was removed to aid in visualization. The medial face of the tibia was cleared of soft tissue first with a Bovie and a johnson elevator. This tissue was retracted posteriorly using a blunt Hohmann. Next, the extra-medullary tibial cutting guide was placed to the anterior aspect of the tibia. The tibia resection level was set taking 2mm from the defective tibial condyle. Resection depth was once again confirmed with laurel wing. The medial and lateral collateral ligament was protected with two Hohmann retractors. The tibia guide was removed and proximal tibial bone fragment removed utilizing straight osteotome, electrocautery and Karina. Next, the distal femur intramedullary canal was accessed utilizing the step drill. The intramedullary distal femur cutting guide was placed into the canal and pinned into place. The distal femur was cut on the 5 degree +0 setting. Next the cutting guide was removed and the femur was sized. Care was taken to ensure appropriate unleavened dough mixer all rotation and 3 degree holes were drilled. A size 9 4-in-1 cutting block was placed on the distal end of the femur and secured into place with two short headed screws. Two bent Hohmann retractors were placed to protect the medial and lateral collateral ligaments. The oscillating saw was used to cut anterior, posterior, anterior chamfer and posterior chamfer. The four and one cutting block was removed and bone fragments excised. Laminar grab jack worker was placed laterally and the ACL and PCL were removed followed by the medial meniscus and posterior medial osteophytes. Aquamantys was utilized for any posterior medial bleeders and Orthomix injected into the posterior medial capsule. A laminar grab jack worker was then placed in the medial compartment and the lateral meniscus and posterior osteophytes were removed. Aquamantys was utilized for any posterior lateral bleeders and Orthomix injected into the posterior lateral capsule. Next, drop timbo and spacer block were placed with the leg in flexion and extension to assess alignment and flexion/extension gaps. Next, the proximal tibia was assessed and two bent Hohmans were placed medial and lateral to aid in visualization. The appropriate tibia size and rotation was selected and a size G tibial plate was pinned into place with appropriate rotation. Preparation of the tibia was completed utilizing the matching tibial drill and broach. I then turned my attention back to the distal femur in a trial femoral component was impacted into place. Appropriate femoral width was assessed and selected. Next the femur PS box cut guide was placed and cut made with the reciprocal saw and the PS box provisional placed. A trial size 12 PS tibia articular tray was placed and varus-valgus balance assessed in 0 degrees of extension and 30, 60 and 90 degrees of flexion. Sequential trialing of tibial articular surface was performed. A final tibial articular surface size 14 PS was chosen. Assess was gained to the patella and caliper utilized to measure width. The patella reamer was utilized and remaining bone removed with oscillating saw. A size 35 mm patella button was selected and the patella pegs drilled. Trial patella button was placed and tracking was assessed. The knee was found to be well balanced, well aligned with excellent patella tracking. The trials were removed and final components were obtained and assembled. The knee was irrigated copiously with sterile saline solution mixed with bacitracin. Access to the proximal tibia was once again obtained utilizing to the Hohmans a nd the proximal tibia and distal femur were dried with lap sponges. The final components were cemented into place and all excess cement was removed. A trial tibial articular surface was placed while cemented hardened. Knee stability was once again assessed and the final component inserted. A Betadine soak was performed. After 3 minutes, the hip was once more irrigated with copious sterile saline solution with bacitracin. The knee was injected with the remaining Orthomix which includes a combination of Ropivicaine 0.5% 150mg, Bupivicaine 0.5%/Epinephrine 1:200,000 30ml, Toradol 30mg, Dexamethasone 4mg, Ketamine 10mg, Clonidine 100mcg and NSS 30ml solution. The capsulotomy was closed with #1 Vicryl followed by subcutaneous closure with 2-0 Vicryl suture and a 3-0 V-lock suture. Skin closure was performed using Prineo dressing followed by Telfa, 4 x 4s and angela wrap. Tourniquet was deflated at 89 minutes. The patient tolerated the procedure well and was taken to the PACU in stable condition. Due to the complex nature of the procedure, the entire surgery was performed with the operational assistance of Clay shepherd PA-C. The legal support assistant, under direct supervision, was involved in the actual performance of all aspects of the surgical procedure including patient positioning, hemostasis, tissue retraction, instrument management and wound closure. I attest to the content of the Intraoperative Record and any orders documented therein. Any exceptions are noted below.
--- NOTE | 2019-04-12 09:37 | Anesthesiology Progress Note ---
Date of Service April 12, 2019 Anesthesia Post Procedure Vital Signs Vital Signs: Temp Pulse Pulse Resp BP BP Pulse Ox 04/12/19 09:30 36.3 C L 71 16 124/72 93 04/12/19 09:20 75 16 127/78 92 04/12/19 09:12 36.0 C L 87 12 111/69 94 04/12/19 05:44 36.5 C 81 20 141/89 H 93 Pain Intensity Right Knee: Pain Intensity: 7 Transfer of Care Handoff Completed per policy Notes Mental Status: alert / awake / arousable Patient Amnestic to Procedure: Yes Nausea / Vomiting: adequately controlled Pain: adequately controlled Airway Patency, RR, SpO2: stable & adequate BP & HR: stable & adequate Hydration State: stable & adequate Neuraxial Anesthesia: was administered and sensory block is resolving Anesthetic Complications: no major complications apparent and Pt Satisfied with anesthetic care
[2019-04-12] MEDS ORDERED: NALOXONE HCL 0.4 MG/1 ML VIAL/CARP IV PRN (10:05)
[2019-04-12] MEDS ORDERED: bisacodyL 10 MG SUPP PR PRN (10:05)
[2019-04-12] MEDS ORDERED: MAGNESIUM HYDROXIDE SUSP 30 ML UDC PO PRN (10:05)
[2019-04-12] MEDS ORDERED: METOCLOPRAMIDE HCL INJ 5 MG/ML 2 ML VIAL IV PRN (10:05)
[2019-04-12] MEDS: GENERAL ORDER PROBLEM SCH ×7 (11:08→23:07)
[2019-04-12] MEDS: GABAPENTIN 300 MG CAP PO SCH ×2 (11:29→20:16)
[2019-04-12] MEDS: SERTRALINE HCL 100 MG TABLET PO SCH (11:29)
[2019-04-12] MEDS: SODIUM CHLORIDE 0.9% 1000ML 1,000 ML IV SCH ×2 (11:30→14:07)
[2019-04-12] MEDS: DOCUSATE SODIUM 100 MG CAP PO SCH ×2 (11:30→20:16)
[2019-04-12] MEDS: MULTIVITAMIN TAB PO SCH (11:30)
[2019-04-12] MEDS: NICOTINE 21 MG/24 HR TDSY TD SCH (11:50)
[2019-04-12] MEDS: OXYCODONE HCL IR 5 MG TAB (IMMEDIATE RELEASE) PO PRN ×2 (12:54→23:43)
[2019-04-12] MEDS: ACETAMINOPHEN 500 MG TAB PO SCH ×2 (13:40→21:26)
[2019-04-12] MEDS: CEFAZOLIN 2000MG 2,000 MG/15 ML SYR IV SCH ×2 (14:08→22:27)
--- NOTE | 2019-04-12 14:13 | XRay Report ---
RIGHT KNEE 2 VIEWS History: Right total knee arthroplasty. Degenerative arthritis. Postop. FINDINGS: The patient is status post a right total knee arthroplasty. The hardware is intact. No frac ture or dislocation. IMPRESSION: Right total knee arthroplasty. No evidence for hardware complication. ACT 112: Negative or not required by law. Electronically signed by: Randy Griffith M.D. 04/12/2019 2:11 PM
--- NOTE | 2019-04-12 15:03 | Orthopedic Progress Note ---
Date of Service April 12, 2019 Assessment & Plan (1) Degenerative joint disease of knee, right: s/p R TKA -ancef x 24 -DVT ppx: SCDs, TEDs, Lovenox -WBAT RLE -PT/OT -Postop x-ray demonstrates a well aligned well fixed prosthesis without evidence of fracture, dislocation. -am labs -DC planning Admission and Anticipated Discharge Date Admission Date: April 12, 2019 Subjective Post Operative Progress Note Patient seen sitting up in bed, comfortable, denies complaints, pain well controlled, no acute issues. Review of Systems Review of Systems: All systems reviewed & are unremarkable except as noted in HPI & below Constitutional: as per Subjective / HPI Physical Exam Physical Exam: RLE NVSI +EHL/FHL/TA/GS SILT grossly, +2 DP pulse, compartments soft NT, dressing cdi. Constitutional: WD/WN, vitals as above Results & Data ([facility]) Vital Signs (Past 12 Hours) Vital Signs Temp Pulse Pulse Resp BP BP Pulse Ox 04/12/19 13:08 36.5 C 87 18 129/72 91 04/12/19 12:00 77 16 119/70 91 04/12/19 11:00 36.3 C L 74 18 118/66 93 04/12/19 10:37 65 18 125/74 91 04/12/19 10:00 36.3 C L 71 18 115/69 90 04/12/19 09:30 36.3 C L 71 16 124/72 93 04/12/19 09:20 75 16 127/78 92 04/12/19 09:12 36.0 C L 87 12 111/69 94 04/12/19 05:44 36.5 C 81 20 141/89 H 93
[2019-04-12] MEDS: HYDROmorphone INJ 0.5 MG/0.5 ML SYR IV PRN ×2 (16:41→21:25)
[2019-04-12] MEDS: SENNA 8.6 MG TAB PO SCH (20:16)
[2019-04-13] MEDS: ACETAMINOPHEN 500 MG TAB PO SCH ×3 (05:16→21:37)
[2019-04-13] MEDS: OXYCODONE HCL IR 5 MG TAB (IMMEDIATE RELEASE) PO PRN ×5 (05:16→23:39)
[2019-04-13 06:27] LABS: Hematocrit (blood only) 41.7 % (42-52); Mean Corpuscular Hemoglobin 33.7 pg (25-34); Mean Corpuscular Hgb Conc 33.6 g/dL (32-36); Mean Corpuscular Volume 100.2 fL (80-100); Mean Platelet Volume 9.9 fL (7.4-10.4); Platelet Count 169 K/uL (130-400); RDW Coefficient of Variation 13.8 % (11.5-14.5); RDW Standard Deviation 50.7 fL (36.4-46.3); Red Blood Count 4.16 M/uL (4.7-6.1); White Blood Count 7.98 K/uL (4.8-10.8)
[2019-04-13 07:01] LABS: Calcium 8.8 mg/dl (8.5-10.1); Creatinine Clr Calc Pharmacy 103.4 ml/min; Est GFR (African American) 96.1; Est GFR (Non-African American) 82.9; Potassium 4.1 mmol/L (3.5-5.1)
--- NOTE | 2019-04-13 07:54 | Orthopedic Progress Note ---
Date of Service April 13, 2019 Assessment & Plan (1) Degenerative joint disease of knee, right: s/p R TKA POD#1 -ancef x 24 -DVT ppx: SCDs, TEDs, Lovenox -WBAT RLE -PT/OT -Postop x-ray demonstrates a well aligned well fixed prosthesis without evidence of fracture, dislocation. -am labs - hgb 14.0, see above -DC planning - home with HH Admission and Anticipated Discharge Date Admission Date: April 12, 2019 Subjective Post Operative Progress Note Patient seen sitting up in bed, comfortable, denies complaints, pain well controlled, no acute issues. Denies F/C/N/V/SOB/CP Review of Systems Review of Systems: All systems reviewed & are unremarkable except as noted in HPI & below Constitutional: as per Subjective / HPI Physical Exam Physical Exam: RLE NVSI +EHL/FHL/TA/GS SILT grossly, +2 DP pulse, compartments soft NT, dressing cdi. Constitutional: WD/WN, vitals as above Results & Data ([facility]) Vital Signs (Past 12 Hours) Vital Signs Temp Pulse Resp BP BP Pulse Ox 04/13/19 07:33 36.5 C 74 18 137/83 92 04/13/19 03:22 36.4 C L 68 20 120/73 93 04/12/19 23:30 36.4 C L 75 18 136/78 93 Laboratory Results 04/13/19 04/13/19 Range/Units 05:59 05:59 WBC 7.98 (4.8-10.8) K/uL RBC 4.16 L (4.7-6.1) M/uL Hgb 14.0 (14.0-18.0) g/dL Hct 41.7 L (42-52) % MCV 100.2 H (80-100) fL MCH 33.7 (25-34) pg MCHC 33.6 (32-36) g/dL RDW Std Deviation 50.7 H (36.4-46.3) fL RDW Coeff of Madhavi 13.8 (11.5-14.5) % Plt Count 169 (130-400) K/uL MPV 9.9 (7.4-10.4) fL Sodium 140 (136-145) mmol/L Potassium 4.1 (3.5-5.1) mmol/L Chloride 108 H (98-107) mmol/L Carbon Dioxide 27 (21-32) mmol/L Anion Gap 4.0 (3-11) BUN 19 H (7-18) mg/dl Creatinine 0.98 (0.6-1.4) mg/dl Est Cr Clr Drug Dosing 103.4 ml/min Est GFR ( Amer) 96.1 Est GFR (Non-Af Amer) 82.9 BUN/Creatinine Ratio 19.0 (10-20) Glucose 115 H (70-99) mg/dl Calcium 8.8 (8.5-10.1) mg/dl
--- NOTE | 2019-04-13 08:05 | Anesthesiology Progress Note ---
Date of Service April 13, 2019 Anesthesia Post Procedure Vital Signs Vital Signs: Temp Pulse Pulse Resp BP BP Pulse Ox 04/13/19 07:33 36.5 C 74 18 137/83 92 04/13/19 03:22 36.4 C L 68 20 120/73 93 04/12/19 23:30 36.4 C L 75 18 136/78 93 04/12/19 19:46 36.8 C 78 16 124/68 92 04/12/19 15:19 36.7 C 96 H 16 137/73 92 04/12/19 13:08 36.5 C 87 18 129/72 91 04/12/19 12:00 77 16 119/70 91 04/12/19 11:00 36.3 C L 74 18 118/66 93 04/12/19 10:37 65 18 125/74 91 04/12/19 10:00 36.3 C L 71 18 115/69 90 04/12/19 09:30 36.3 C L 71 16 124/72 93 04/12/19 09:20 75 16 127/78 92 04/12/19 09:12 36.0 C L 87 12 111/69 94 Pain Intensity Right Knee: Pain Intensity: 9 Notes Mental Status: alert / awake / arousable and participated in evaluation Patient Amnestic to Procedure: Yes Nausea / Vomiting: adequately controlled Pain: adequately controlled Airway Patency, RR, SpO2: stable & adequate BP & HR: stable & adequate Hydration State: stable & adequate Neuraxial Anesthesia: was administered and sensory block resolved Anesthetic Complications: no major complications apparent and Pt Satisfied with anesthetic care
[2019-04-13] MEDS: DOCUSATE SODIUM 100 MG CAP PO SCH ×2 (08:11→21:37)
[2019-04-13] MEDS: GABAPENTIN 300 MG CAP PO SCH ×2 (08:11→21:37)
[2019-04-13] MEDS: MULTIVITAMIN TAB PO SCH (08:11)
[2019-04-13] MEDS: ENOXAPARIN INJ 40 MG/0.4 ML SYR SQ SCH (08:11)
[2019-04-13] MEDS: SERTRALINE HCL 100 MG TABLET PO SCH (08:12)
[2019-04-13] MEDS: NICOTINE 21 MG/24 HR TDSY TD SCH (08:12)
[2019-04-13] MEDS: HYDROmorphone INJ 0.5 MG/0.5 ML SYR IV PRN ×4 (08:20→22:00)
[2019-04-13] MEDS: SENNA 8.6 MG TAB PO SCH (21:37)
[2019-04-14] MEDS: HYDROmorphone INJ 0.5 MG/0.5 ML SYR IV PRN ×3 (01:57→11:50)
[2019-04-14] MEDS: ACETAMINOPHEN 500 MG TAB PO SCH ×2 (04:45→13:41)
[2019-04-14] MEDS: OXYCODONE HCL IR 5 MG TAB (IMMEDIATE RELEASE) PO PRN ×3 (04:45→12:57)
[2019-04-14 05:47] LABS: Hematocrit (blood only) 39.7 % (42-52); Hemoglobin 13.2 g/dL (14.0-18.0); Mean Corpuscular Hemoglobin 33.8 pg (25-34); Mean Corpuscular Hgb Conc 33.2 g/dL (32-36); Mean Corpuscular Volume 101.5 fL (80-100); Platelet Count 144 K/uL (130-400); RDW Coefficient of Variation 13.8 % (11.5-14.5); RDW Standard Deviation 51.8 fL (36.4-46.3); Red Blood Count 3.91 M/uL (4.7-6.1)
[2019-04-14 06:30] LABS: BUN Creatinine Ratio 15.6 (10-20); Calcium 8.7 mg/dl (8.5-10.1); Creatinine Clr Calc Pharmacy 133.3 ml/min; Est GFR (African American) 114.1; Est GFR (Non-African American) 98.5; Potassium 3.7 mmol/L (3.5-5.1)
--- NOTE | 2019-04-14 08:45 | Orthopedic Progress Note ---
Date of Service April 14, 2019 Assessment & Plan (1) Degenerative joint disease of knee, right: s/p R TKA POD#2 -ancef x 24 -DVT ppx: SCDbecca, Kathy, Lovenox -WBAT RLE -PT/OT -Postop x-ray demonstrates a well aligned well fixed prosthesis without evidence of fracture, dislocation. -am labs - hgb 13.2, see above -DC planning - home with POD#1 -ancef x 24 -DVT ppx: SCDs, IBISs, Lovenox -WBAT RLE -PT/OT -Postop x-ray demonstrates a well aligned well fixed prosthesis without evidence of fracture, dislocation. -am labs - hgb 14.0, see above -DC planning - home with Admission and Anticipated Discharge Date Admission Date: April 12, 2019 Subjective Post Operative Progress Note Patient seen sitting up in bed, comfortable, denies complaints, had sone pain l ast night, pain well controlled this morning, no acute issues. Denies F/C/N/V/SOB/CP Review of Systems Review of Systems: All systems reviewed & are unremarkable except as noted in HPI & below Constitutional: as per Subjective / HPI Physical Exam Physical Exam: RLE NVSI +EHL/FHL/TA/GS SILT grossly, +2 DP pulse, compartments soft NT, dressing cdi. Constitutional: WD/WN, vitals as above Results & Data (MN) Vital Signs (Past 12 Hours) Vital Signs Temp Pulse Resp BP BP Pulse Ox 04/14/19 07:46 36.6 C 75 16 155/82 H 93 04/13/19 23:30 36.8 C 78 16 154/85 H 93 Laboratory Results 04/14/19 04/14/19 Range/Units 05:30 05:30 WBC 6.30 (4.8-10.8) K/uL RBC 3.91 L (4.7-6.1) M/uL Hgb 13.2 L (14.0-18.0) g/dL Hct 39.7 L (42-52) % MCV 101.5 H (80-100) fL MCH 33.8 (25-34) pg MCHC 33.2 (32-36) g/dL RDW Std Deviation 51.8 H (36.4-46.3) fL RDW Coeff of Madhavi 13.8 (11.5-14.5) % Plt Count 144 (130-400) K/uL MPV 10.0 (7.4-10.4) fL Sodium 136 (136-145) mmol/L Potassium 3.7 (3.5-5.1) mmol/L Chloride 104 (98-107) mmol/L Carbon Dioxide 28 (21-32) mmol/L Anion Gap 4.0 (3-11) BUN 12 (7-18) mg/dl Creatinine 0.76 (0.6-1.4) mg/dl Est Cr Clr Drug Dosing 133.3 ml/min Est GFR ( Amer) 114.1 Est GFR (Non-Af Amer) 98.5 BUN/Creatinine Ratio 15.6 (10-20) Glucose 117 H (70-99) mg/dl Calcium 8.7 (8.5-10.1) mg/dl
[2019-04-14] MEDS: MULTIVITAMIN TAB PO SCH (08:49)
[2019-04-14] MEDS: DOCUSATE SODIUM 100 MG CAP PO SCH (08:49)
[2019-04-14] MEDS: SERTRALINE HCL 100 MG TABLET PO SCH (08:49)
[2019-04-14] MEDS: GABAPENTIN 300 MG CAP PO SCH (08:49)
[2019-04-14] MEDS: ENOXAPARIN INJ 40 MG/0.4 ML SYR SQ SCH (08:50)
[2019-04-14] MEDS: NICOTINE 21 MG/24 HR TDSY TD SCH (08:50)
--- NOTE | 2019-04-14 22:11 | Discharge Summary ---
Date of Service April 14, 2019 Admission HPI Per Admitting Provider The patient is a 59 year old male who presents with complaints of severe right knee pain and DJD. The patient has failed outpatient conservative treatments to this point which included NSAIDs, IA corticosteroid injection, PT and a home exercise walking program. The patient's pain and limited function have progressed to the point where they severely hinder their activities of daily living and they no longer tolerate exercise programs. They are requesting to proceed with total knee replacement surgery. Principal Diagnosis Right total knee replacement -Right knee DJD Discharge Exam RLE NVSI +EHL/FHL/TA/GS SILT grossly, +2 DP pulse, compartments soft NT, dressing cdi. Constitutional WD/WN, vitals as above Discharge Data Allergies Allergy/AdvReac Type Severity Reaction Status Date / Time No Known Allergies Allergy Verified 04/12/19 05:40 Consultations 04/12/19 10:05 Consult Case Management - Discharge Planning Routine Procedures Performed Operation Date: 04/12/19 07:00 Actual Procedures p Right Total Knee Arthroplasty(Right) - Landen Zuniga DO Ordered Studies 04/12/19 05:00 US - OR guided needle [facility] Urgent Hospital Course (1) Degenerative joint disease of knee, right: The patient is a 59 -year-old male who presents with long standing history of severe right knee DJD and failed outpatient conservative treatments. The patient's symptoms have progressed to the point where it has been difficult to perform even normal activities of daily living. I indicated the patient for a right total knee arthroplasty, the risks, benefits and complications of the procedure include but not limited to infection, bleeding, damage to bone, nerves, vessels, surrounding soft tissue, may develop blood clots, loss of function, leg length discrepancy, dislocation, failure of the components, loosening of the components, the need for additional surgery and . The patient wished to proceed with surgery at this time and informed consent was obtained. Hospital Course: On 04/12/19 the patient was taken to the operating room, adequate anesthesia administered and underwent a right total knee arthroplasty. The patient tolerated the procedure well and was taken to the PACU in stable condition. Post-operatively the patient was started on a DVT ppx medication and given appropriate IV antibiotics. Consults were placed to physical therapy, occupational therapy and case management. On POD#1, the patient did well overnight and their pain was well controlled. Labs were drawn and the Hgb was 14.0. The patient progressed well with PT. On POD#2, the patient continued to progress with PT, pain well controlled, no acute issues. Labs were drawn, hgb 13.2. Dressings were changed at this time and the incision was clean, dry and intact. The patients hospital stay was relatively uneventful and they were deemed stable by the orthopedic team and consultants to be discharged home with on 04/14/19. Discharge Instructions: Upon discharge the patient may weight bear as tolerates through their operative extremity. They were instructed to keep the incision clean and dry at all times. The patient may shower but should not submerge the incision, avoid bathing, pools and hot tubes. The patient was given a script for pain medication and should take as instructed. The patient was given a script for DVT ppx Lovenox 40mg daily and should take as directed. The patient was instructed to not drive or travel for long distances until cleared to do so. If the patient develops any symptoms of fevers, chills, nausea, vomiting, increased redness, swelling, pain or drainage from the surgical site, they should notify the office and/or proceed to the nearest emergency room. The patient should follow up in 10-14 days after surgery for their routine post-operative follow-up appointment and should call the office to confirm the date and time. s/p R TKA POD#2 -ancef x 24 -DVT ppx: SCDs, TEDs, Lovenox -WBAT RLE -PT/OT -Postop x-ray demonstrates a well aligned well fixed prosthesis without evidence of fracture, dislocation. -am labs - hgb 13.2, see above -DC planning - home with HH POD#1 -ancef x 24 -DVT ppx: SCDs, TEDs, Lovenox -WBAT RLE -PT/OT -Postop x-ray demonstrates a well aligned well fixed prosthesis without evidence of fracture, dislocation. -am labs - hgb 14.0, see above -DC planning - home with Total Time Total Time Spent Total Time Spent (In Minutes): 45 minutes Discharge Plan Discharge Items Patient Disposition: Home - Home Health Services Reason For Visit: Unilateral Primary Osteoarthritis, Right Knee Discharge Diagnosis: Right total knee replacement Condition on Discharge: Good Activity: Per Instructions section Lifting: Wait until after follow-up appointment Bathing: Keep incision dry Bathing Comment: No bathing, pools or hot tubs Sexual Activity: Wait until after follow-up appointment Exercise/Sports: Wait until after follow-up appointment Driving/Machine Use: No driving Weightbearing: Full weightbearing Non-emergency contact: Primary Care Provider and Surgeon Call non-emergency contact if: you have any medication questions, your symptoms worsen, your pain is not controlled, your pain is worsening, your pain is unusual for you, your pain is concerning for you, you have a fever, your temperature is above 101, your wound has increased redness, your wound has increased drainage and your wound pain has increased Follow-up/Referrals: Brenda Taylor D.O. [Primary Care Provider] - Diet: Regular Addtl Attending Provider Instructions: ACTIVITY RECOMMENDATIONS: SELF CARE INSTRUCTIONS AFTER TOTAL KNEE REPLACEMENT A. You may need to continue a physical therapy program after discharge from the hospital. There are several options available to you. Your doctor will assist you in selecting the best one for you. 1. An out-patient facility 2 to 3 times a week for therapy or home therapy. 2. Continue working on all exercises taught to you in the hospital. Your goals should be to increase bending of your knee to 90 degrees and beyond and to fully straighten your knee. B. You may progress at your own pace from walking with a walker or crutches to a cane; then to no assistive devices. C. Make walking a part of your daily routine. Be up as much as comfortable with rest periods throughout the day. Rest with leg elevation is very important. Use the ice wrap frequently for the first 3-4 weeks. D. There are no restrictions on activities. 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 E. Wear the long elastic stockings (IBIS hose) 20 hours a day for 2 weeks after surgery. They can be removed several times a day for laundering and for a bath. F. You may shower, no tub baths until cleared by your doctor. SPECIAL CARE INSTRUCTIONS: VERY IMPORTANT TO READ AND REVIEW A. There are a few signs you need to watch for after you are home. Call [facility] if you notice any of the followin. Increased severe knee pain. Some pain is expected especially when you exercise. 2. Increased swelling in your leg or knee; pain or swelling of the calf muscle in either lower leg. 3. Any fluid drainage from the incision. 4. Shortness of breath or chest pain. B. Please call [facility] at if you have any concerns or questions about your operation or recovery. The doctor or his nurse will return your call promptly. C. You must take antibiotics before dental work, bladder, bowel or other surgery. Your doctor will provide you with a permanent care to carry describing this precaution. IMPORTANT: * REMEMBER TO TAKE LOVENOX 40MG DAILY FOR 4 WEEKS UNLESS OTHERWISE DIRECTED. THIS IS YOUR BLOOD THINNER. * HIGH RISK PATIENTS MAY BE PRESCRIBED A STRONGER BLOOD THINNER. THIS WILL BE PROVIDED AT DISCHARGE. * CALL IF INCREASED PAIN, REDNESS, DRAINAGE OR FEVER GREATER THAT 101. * WEAR IBIS HOSE 20 HOURS PER DAY FOR 2 WEEKS. *DERMABOND Prineo- This is a mesh tape dressing that is covered with glue. It should remain in place until the incision is properly healed, usually 10-14 days. This dressing is designed to naturally slough off. You may trim the excess mesh tape as it peels off. Incision may be briefly wet in a shower. Dry immediately by blotting with a clean, dry towel. Do not bath or swim until instructed by your doctor. Do not scratch, rub, or pick at the dressing. Do not apply any topical ointments or lotions until dressing is completely removed and/or instructed by your doctor. There may be a small piece of suture material at one end of your incision. Do not pull or trim this. If it is bothersome or catching on clothing, you may cover it with a band-aid. IF INCISION IS LEAKING THROUGH DRESSING, CALL THE OFFICE . FOLLOW UP VISIT: If appointment is not already scheduled: Please call [facility] to make a follow-up appointment for 2 weeks after your surgery at . Pending Studies at Discharge: No Stand-Alone Forms: My [employer], Smoking Cessation Medications and DC Order Prescriptions: New acetaminophen 500 mg Tablet 1,000 mg PO Q8 PRN (Reason: pain/fever) Qty: 90 RF: 0 oxycodone 5 mg Tablet 5 mg PO Q6H MDD 6 tabs PRN (Reason: pain) Qty: 30 RF: 0 enoxaparin 40 mg/0.4 mL Syringe 40 mg subcut Q24H Qty: 28 RF: 0 sennosides [Senokot] 8.6 mg Tablet 17.2 mg PO HS PRN (Reason: constipation) Qty: 28 RF: 0 Continued gabapentin 300 mg Capsule 300 mg PO BID RF: 0 sertraline 100 mg Tablet 100 mg PO QAM RF: 0 Chantix Patch-Starter Pack 1 patch topical Q2D RF: 0 Discontinued hydrocodone-acetaminophen 5-325 mg Tablet 1 tab PO Q6H PRN (Reason: Pain) RF: 0 Discharge Orders: Discharge Order (Routine); Ordered 04/14/19 Ordered By: Pastor Bullard/Other Patient Handouts: Knee Replace Home After, Knee Replace [facility] Admission Data Admit Date/Time: 04/12/19 09:16 Attending Provider: Landen Zuniga Admit Provider: Landen Zuniga Primary Care Provider: Brenda Taylor Other Interventions: Discharge Summary Assessment (RN) Last Done: 04/14/19 13:42 DC Date/Time DO NOT enter until pt leaves facility: 04/14/19 14:00
== END 2019-04-14 14:00 | disposition home health service (06) | DRG 470 ==
LOC: ASU 04:55 → 3E 09:16